=== PATIENT | male | born 1995 | race African-American/Black ===

== ENCOUNTER 2017-12-21 15:31 | Emergency (ER) | payer OTHER ==
[~2017-12-21] VITALS: Ht 182.9 cm; Wt 79.4 kg
[2017-12-21 15:49] VITALS: BP 128/78
[2017-12-21 16:24] LABS: APPEARANCE,URINE CLEAR; BILIRUBIN, URINE NEGATIVE (NEGATIVE); COLOR,URINE PALE YELLOW; GLUCOSE, URINE (UA) NEGATIVE (NEGATIVE); KETONES,URINE NEGATIVE (NEGATIVE); LEUKOCYTE ESTERASE ,URINE NEGATIVE (NEGATIVE); NITRITE,URINE NEGATIVE (NEGATIVE); PH,URINE 6 (4.5-8.0); PROTEIN,URINE NEGATIVE (NEGATIVE); UROBILINOGEN,URINE NORMAL MG/DL (0.0-1.0)
[2017-12-21] MEDS ORDERED: PHENAZOPYRIDIN200 MG ORAL (16:37)
--- NOTE | 2017-12-21 16:37 | Emergency Room Report ---
History of Present Illness General Chief Complaint: Male Urogenital Problems Source: Patient Present Illness HPI 22-year-old male presents to the emergency department stating that he has been having urinary frequency 1 week. Patient also reports that today he noticed blood in his urine which prompted him to come be evaluated. He reports a tingling sensation during urination however he denies pain. Patient also reports intermittent left lower quadrant abdominal pain that he rates as 3 out of 10 in severity. Patient states that he is not sexually active denies penile discharge or lesions. Denies testicular pain or swelling. Patient denies rash or itching. Patient denies joint pain or swollen tender lymph nodes. Patient denies history of stones, low back pain, or history of urogenital problems in the past. Patient states his only past medical history as allergies. Denies CP , Palpitations, LOC, AMS, dizziness, Changes in Vision, Sensation, paresthesias , or a sudden severe headache. 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 Hx Asthma: Yes Review of Systems All Other Systems: negative except mentioned in HPI Physical Exam Vital Signs Date Time Temp Pulse Resp B/P (MAP) Pulse Ox O2 Delivery O2 Flow Rate FiO2 12/21/17 15:39 98.3 92 20 119/73 96 Room Air 98.2 Sp02 EP Interpretation: reviewed, normal General Appearance: no apparent distress, alert, GCS 15, non-toxic Head: normocephalic, atraumatic ENT: hearing grossly normal, normal voice Neck: full range of motion Respiratory: lungs clear, normal breath sounds, speaking full sentences Cardiovascular #1: regular rate, rhythm Gastrointestinal: normal bowel sounds, non tender, soft, non-distended, no guarding, no hernia Rectal: deferred Genitourinary: normal inspection, no CVA tenderness, deferred - Pt. declined genital exam. Musculoskeletal: back normal, gait/station normal, normal range of motion, non- tender Neurologic: alert, oriented x3, responsive, motor strength/tone normal, sensory intact, normal gait, speech normal, grossly normal Psychiatric: judgement/insight normal Skin: normal color, no rash, warm/dry, well hydrated Lymphatic: no adenopathy Medical Decision Making PA Attestation Dr. Mistry is my supervising Physician whom patient management has been discussed with. Diagnostic Impression: Primary Impression: Increased urinary frequency Additional Impression: Hematuria Qualified Codes: R31.9 - Hematuria, unspecified ER Course 22-year-old male presents to the emergency department stating that he has been having urinary frequency 1 week. Patient also reports that today he noticed blood in his urine which prompted him to come be evaluated. He reports a tingling sensation during urination however he denies pain. Patient also reports intermittent left lower quadrant abdominal pain that he rates as 3 out of 10 in severity. Patient states that he is not sexually active denies penile discharge or lesions. Denies testicular pain or swelling. Patient denies rash or itching. Patient denies joint pain or swollen tender lymph nodes. Patient denies history of stones, low back pain, or history of urogenital problems in the past. Patient states his only past medical history as allergies. Denies CP , Palpitations, LOC, AMS, dizziness, Changes in Vision, Sensation, paresthesias , or a sudden severe headache. Ddx considered but are not limited to UTi , Urethritis, LGV, STI, Stone, Cystitis, prostatitis, Hernia just to name a few. Vital signs: are WNL, pt. is afebrile H&PE are most consistent with hx of hematuria and increased urinary frequency. ORDERS: - UA : Unremarkable no occult blood or RBC's. ED INTERVENTIONS: -Pyridium PO -Discussed with this patient the results of his urinalysis as well as conservative treatment for his symptoms. Discussed with patient that he needs to follow-up with his primary care provider. Patient is given ED return precautions with worsening or new symptoms. DISCHARGE: At this time pt. is stable for d/c to home. Will provide printed patient care instructions, and any necessary prescriptions. Care plan and follow up instructions have been discussed with the patient prior to discharge. Labs Test 12/21/17 15:45 Urine Color Pale yellow Urine Appearance Clear Urine pH 6 (4.5-8.0) Urine Specific [place] 1.005 (1.005-1.035) Urine Protein Negative (NEGATIVE) Urine Glucose (UA) Negative (NEGATIVE) Urine Ketones Negative (NEGATIVE) Urine Occult Blood Negative (NEGATIVE) Urine Nitrite Negative (NEGATIVE) Urine Bilirubin Negative (NEGATIVE) Urine Urobilinogen Normal MG/DL (0.0-1.0) Urine Leukocyte Esterase Negative (NEGATIVE) Last Vital Signs Date Time Temp Pulse Resp B/P (MAP) Pulse Ox O2 Delivery O2 Flow Rate FiO2 12/21/17 15:49 98.2 74 20 128/78 98 Room Air 98.2 Disposition: HOME, SELF-CARE Condition: Stable Scripts Phenazopyridine Hcl* (PYRIDIUM*) 200 Mg Tablet 200 MG ORAL THREE TIMES A DAY for 3 Days, #9 TAB 0 Refills Prov: Sagrario Keith 12/21/17 Referrals: [facility]ERR[facility] (PCP) Patient Instructions: Hematuria, Adult, Urinary Frequency Additional Instructions: Take medications as directed. Pyridium will cause your urine to change color (Red/Williams), this is a normal side effect of the medication. Follow up with a Primary Care Provider in 3-5 days, even if your symptoms have resolved. --Please review list of primary care clinics, if you do not already have a primary care provider Return sooner to ED if new symptoms occur, or current symptoms become worse. - Please note that this Emergency Department Report was dictated using [employer] cook technology software, occasionally this can lead to erroneous entry secondary to interpretation by the dictation equipment. Sagrario Keith Dec 21, 2017 16:37
[2017-12-21] MEDS ORDERED: Phenazopyridine 200mg tab ORAL ONE (16:45)
[2017-12-21 16:54] VITALS: BP 128/78
== END 2017-12-21 16:56 | disposition home or self-care (01) ==
LOC: EMR 16:23
DX: R35.0 Frequency of micturition (principal); R31.9 Hematuria, unspecified; J45.909 Unspecified asthma, uncomplicated
CPT/HCPCS: 81003; 99283

== ENCOUNTER 2018-02-06 21:36 | Emergency (ER) | payer OTHER ==
[~2018-02-06] VITALS: Ht 185.4 cm; Wt 70.3 kg
[~2018-02-06 21:36] MED LIST: PHENAZOPYRIDIN200 MG ORAL
[2018-02-06 21:50] VITALS: BP 123/69
[2018-02-06] MEDS ORDERED: DEBROX15 M1 BOTH EARS (22:04)
[2018-02-06 22:08] VITALS: BP 123/69
--- NOTE | 2018-02-06 22:38 | Emergency Room Report ---
History of Present Illness General Chief Complaint: Earache Source: Patient Present Illness HPI 22-year-old male presents ED complaining of intermittent left ear pain times one week. Denies any pain at this time. His states that he's had ear infections in the past. And was given antibiotics. States that he had left over antibiotics and try that at this time but states it did not help. Denies any fevers or chills. Denies cough. Denies sick contacts or recent travel. No other aggravating relieving factors. Denies any other associated symptoms Allergies: Coded Allergies: No Known Allergies (Unverified , 12/21/17) Patient History Past Medical History: asthma Past Surgical History: none Pertinent Family History: none Social History: Denies: smoking, alcohol use, drug use Immunizations: UTD Reviewed Nursing Documentation: PMH: Agreed; PSxH: Agreed Nursing Documentation-PMH Past Medical History Deferred: Pt Cognitively Impaired Hx Pacemaker: No - Testicular torsion Hx Asthma: Yes Review of Systems All Other Systems: negative except mentioned in HPI Physical Exam Vital Signs Date Time Temp Pulse Resp B/P (MAP) Pulse Ox O2 Delivery O2 Flow Rate FiO2 02/06/18 21:41 98.4 68 16 123/69 98 Room Air 98.4 Sp02 EP Interpretation: reviewed, normal General Appearance: no apparent distress, alert, GCS 15, non-toxic Head: normocephalic Eyes: bilateral eye normal inspection, bilateral eye PERRL ENT: hearing grossly normal, normal pharynx, no angioedema, normal voice, other - cerumen impaction bilateral TM Neck: normal inspection Respiratory: normal inspection Cardiovascular #1: normal inspection Gastrointestinal: normal inspection Rectal: deferred Genitourinary: no CVA tenderness Musculoskeletal: normal inspection Neurologic: alert, oriented x3, responsive, motor strength/tone normal, sensory intact, speech normal Psychiatric: normal inspection Skin: normal inspection Lymphatic: normal inspection Medical Decision Making Diagnostic Impression: Primary Impression: Impacted cerumen of both ears ER Course Hospital Course 22-year-old M presents to ED with pain L ear. no fever. Differential diagnoses include: TM perforation, otitis externa, otitis media Clinical course Patient placed on stretcher. After initial history, physical exam reveals a young male in no acute distress. Both ear canals are obscured by cerumen. Discussed findings with the patient. We will prescribe debrox and recommend that patient follow up with his PMD to have his ears looked at once the cerumen is removed Diagnosis - impacted cerumen Stable and discharged to home with Rx Carbamide peroxide. Followup with PMD. Return to ED if symptoms recur or worsen Last Vital Signs Date Time Temp Pulse Resp B/P (MAP) Pulse Ox O2 Delivery O2 Flow Rate FiO2 02/06/18 22:08 98.4 16 123/69 98 Room Air 98.4 02/06/18 21:41 68 Status: improved Disposition: HOME, SELF-CARE Condition: Stable Scripts Carbamide Peroxide (DEBROX) 15 Ml Drops 10 DROP BOTH EARS TWICE A DAY for 4 Days, ML 0 Refills Prov: Aguilar Munroe MD 02/06/18 Patient Instructions: Cerumen Impaction Aguilar Munroe MD February 06, 2018 22:38
== END 2018-02-06 22:10 | disposition home or self-care (01) ==
LOC: EMR 21:55
DX: H61.23 Impacted cerumen, bilateral (principal); J45.909 Unspecified asthma, uncomplicated
CPT/HCPCS: 99283